=== PATIENT | female | born 1980 | race Caucasian/White ===

== ENCOUNTER → 2017-01-24 | Outpatient (CLI) | payer OTHER | LOC: FIMAGING 12:37 | DX: N83.201 Unspecified ovarian cyst, right side (principal); N83.202 Unspecified ovarian cyst, left side; D25.9 Leiomyoma of uterus, unspecified ==

== ENCOUNTER → 2017-07-01 | Outpatient (CLI) | payer OTHER, MEDICAID ==
[~2017-07-01] MED LIST: IOPAMIDOL (ISOVUE 370) 100 ML BTL IV ONE
== END ==
LOC: FIMAGING 06-06 13:55
PROC: 0UJ87ZZ Inspection of Fallopian Tube, Via Natural or Artificial Opening (ICD-10-PCS; principal; 2017-07-01)
DX: Z31.41 Encounter for fertility testing (principal)
CPT/HCPCS: Q9967

== ENCOUNTER → 2018-05-05 | Outpatient (CLI) | payer OTHER, MEDICAID | LOC: FIMAGING 11:14 | DX: O09.522 Supervision of elderly multigravida, second trimester (principal); D25.9 Leiomyoma of uterus, unspecified; Z3A.22 22 weeks gestation of pregnancy ==

== ENCOUNTER → 2018-06-05 | Outpatient (CLI) | payer OTHER, MEDICAID | LOC: FIMAGING 14:55 | DX: O09.522 Supervision of elderly multigravida, second trimester (principal); O99.212 Obesity complicating pregnancy, second trimester; Z3A.26 26 weeks gestation of pregnancy ==

== ENCOUNTER → 2018-07-15 | Outpatient (CLI) | payer OTHER, MEDICAID | DX: O09.523 Supervision of elderly multigravida, third trimester (principal); O26.03 Excessive weight gain in pregnancy, third trimester; Z3A.32 32 weeks gestation of pregnancy ==